=== PATIENT | male | born 1945 | race Caucasian/White ===

== ENCOUNTER 2024-11-25 09:19 | Outpatient (CLI) | payer OTHER ==
--- NOTE | 2024-11-25 14:07 | RADIOLOGY REPORT ---
PROCEDURE: MR MRI HEAD Indication: LUNG CANCER COMPARISON: None TECHNIQUE: Multiplanar multisequence images of the brain are obtained with and without contrast. FINDINGS: There is no abnormal diffusion restriction. There are [id number] periventricular and subcortical white matter T2 and FLAIR hyperintense changes There is no intracranial hemorrhage. No extra-axial fluid collection, mass effect or midline shift. The ventricles are midline and normal in size. The ci sterns are patent. Normal intracranial flow voids are preserved. No abnormal susceptibility signal. No abnormal intracranial enhancement. Mucosal thickening of the ethmoids. Bilateral mastoid effusions The visualized orbits are unremarkable. IMPRESSION: No acute cerebrovascular ischemia. [id number]-[id number] chronic microvascular ischemic changes. No evidence for intracranial metastatic disease. Bilateral mastoid effusions.
[2024-11-25] MEDS ORDERED: GADOTERATE MEGLUMINE 7.5 MMOL/15 ML VIAL IV ONE (15:47)
== END 2024-11-25 23:59 | disposition home or self-care (01) ==
LOC: MRI 09:19
PROVIDERS: ATTEND Student in an Organized Health Care Education/Training Program
DX: I67.89 Other cerebrovascular disease (principal); C34.12 Malignant neoplasm of upper lobe, left bronchus or lung; H95.193 Other disorders following mastoidectomy, bilateral ears
CPT/HCPCS: 70553; A9575